=== PATIENT | female | born 1935 | race Caucasian/White ===

== ENCOUNTER 2020-08-13 14:15 | Inpatient (IN) | payer OTHER ==
[~2020-08-13] VITALS: Ht 162.6 cm; Wt 52.8 kg
[2020-08-13 14:20] VITALS: BP 120/60
[2020-08-13] MEDS ORDERED: LEXAPRO 10 MG T10 M1 PO (14:32)
[2020-08-13] MEDS ORDERED: MIRTAZAPINE7.5 MG PO (14:32)
[2020-08-13] MEDS ORDERED: SEROQUEL 25 MG25 MG PO (14:33)
[2020-08-13] MEDS ORDERED: LORADAMED10 MG PO (14:33)
--- NOTE | 2020-08-13 14:46 | NUR ---
Patient stood up and transferred to chair with unsteady gait. Camial notified of this and reports it is ok to wait to collect urine until she is seen in the back.
[2020-08-13 14:57] LABS: ABSOLUTE NEUTROPHILS 3.5 thou/uL (1.4-8.2); BASOPHILS 0.9 % (0.0-2.0); EOSINOPHILS 1.2 % (0.0-3.0); HEMATOCRIT 33.1 % (37.0-47.0); HEMOGLOBIN 11.2 gm/dL (12.0-15.0); LYMPHOCYTES 27.3 % (24.0-44.0); MCH 30.9 pg (26.0-34.0); MCHC 33.8 g/dL (28.0-37.0); MCV 91.3 fL (80.0-100.0); MONOCYTES 6.1 % (1.0-8.0); PLATELET COUNT 207 thou/uL (150-400); POLYS 64.5 % (36.0-66.0); RBC 3.62 mil/uL (4.20-5.00); RDW 13.9 % (10.5-14.5); WBC 5.4 thou/uL (4.0-11.0)
[2020-08-13 15:16] LABS: CALCIUM 8.9 mg/dL (8.5-10.1); POTASSIUM 3.9 mmol/L (3.5-5.1)
[2020-08-13 15:21] LABS: TOTAL BILIRUBIN 0.5 mg/dL (0.2-1.0); TOTAL PROTEIN 7.3 g/dL (6.4-8.2)
[2020-08-13 16:17] LABS: URINE BILIRUBIN NEGATIVE (Negative); URINE BLOOD TRACE (Negative); URINE CLARITY CLEAR; URINE COLOR YELLOW; URINE GLUCOSE-RANDOM* NEGATIVE (Negative); URINE KETONES NEGATIVE (Negative); URINE LEUKOCYTES-REFLEX TRACE (Negative); URINE NITRITE-REFLEX NEGATIVE (Negative); URINE PROTEIN (DIPSTICK) NEGATIVE (Negative); URINE UROBILINOGEN 0.2 E.U./dl (0.2-1.0)
[2020-08-13 17:21] VITALS: BP 120/60
--- NOTE | 2020-08-13 17:29 | NUR ---
PLEASE CALL ROC PEREZ (DAUGHTER) AT [phone] WITH ANY UPDATES OR WHEN SHE IS MOVED TO AN IN-PATIENT ROOM.
[2020-08-13 21:42] VITALS: BP 123/61
--- NOTE | 2020-08-13 21:45 | NUR ---
TRIED TO CALL REPORT. PT UNAVAILABLE.
[2020-08-13 23:39] VITALS: BP 153/76
--- NOTE | 2020-08-14 00:46 | NUR ---
PATIENT ADMITTED TO [facility] ED WITH SI, DEMENTIA WITH BEHAVIORS. SHE CAME BY STRETCHER. ASSISTED PATIENT TO BATHROOM. PATIENT APPEARS TO BE CONTINENT. PT'S GOWN CHANGED TO APPROPRIATE [facility] GOWN. PATIENT IS SPEAKS WITH WORD SALAD. PATIENT A/0X1. WHEN ASKED WHY SHE WAS AT HOSPITAL SHE STATES SHE DOESN'T KNOW. WHEN ASKED IF SHE WANTED TO HURT HERSELF OR WISH SHE WAS SHE SAID NO THAT SHE'D NEVER THINK THAT. PATIENT IS VERY UNSTEADY ON FEET. SHE DENIES USING A WALKER AT HOME. SHE DENIES PAIN. NO COMBATIVENESS SEEN OR HI. PATIENT'S SKIN IS INTACT WITH SOME BRUISING ON RIGHT HAND, POSIBLY FROM IV. ABDOMEN SOFT AND NONTENDER. POSITIVE BOWEL SOUNDS IN ALL 4 QUADS. NO EDEMA NOTED. HEART RATE REGULAR WITH S1S2 SOUNDS. LUNGS CTA BILATERALLY. PATIENT OFFERED WATER BEFORE GOING TO SLEEP AND SHE DID DRINK SOME. PATIENT LIVES AT HOME WITH HER . CALLED AND LEFT MESSAGE FOR TO CALL [facility] FOR CONSENT APPROVAL. PATIENT HAS MEDICARE A AND B AND [employer]IG[employer] INSURANCE. HER IS HER DPOA: LORI SHIPMAN [phone]. PATIENT ASSISTED TO BED AND SIDERAILS UP X 3. BED IN LOW POSITON AND BED ALARM IS ON. ROUTINE ROUNDING TO ASSESS SAFETY AND STATUS OF PATIENT.
--- NOTE | 2020-08-14 02:02 | NUR ---
PATIENT WAS UP IN DINING ROOM SINCE WOULD NOT STAY IN BED LONGER THAN 30 MINUTES. PATIENT IN RECLINER. SHE IS RESTLESS, AND IMPULSIVE TRYING TO GET OUT OF CHAIR AND NOT WANTING TO SLEEP. PATIENT ASSISTED TO BATHROOM. PATIENT IS AN ASSIST X 1. SHE IS UNSTEADY ON HER FEET. SHE IS CONFUSED AND GETS AGITATED EASILY. ORDER RECEIVED FROM DUY GARCIA FOR TRAZADONE 50MG PO ONE TIME, AND HALDOL 2.5MG PO OR IM Q 4 HOURS AGITATION. MEDS JUST ORDERED AND WILL GET READY TO GIVE NOW. PATIENT DOES NOT HAVE DENTURES, GLASSES AND HAS A HEARING AID IN RIGHT EAR.
[2020-08-14 09:06] VITALS: BP 128/61
[2020-08-14 12:14] LABS: FOLIC ACID 9.6 ng/mL (8.6-58.9); TSH 1.887 uIU/mL (0.358-3.740)
--- NOTE | 2020-08-14 15:28 | EKG ---
[facility] [place] [address] ELECTROCARDIOGRAM REPORT Name: RONI SHIPMAN Room #: [facility] ADM IN M.R.#: [id number] Admission: 08/13/20 Attend Phys: Marc Lantigua DO Discharge: Date of : 37 Report #: [id number] THIS REPORT FOR: cc: NABIL REA MD, SAMANTHA M. 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: YVONNE : 1935 Requested By: Marc Lantigua Order Number: [id number] MD: Asad Huddleston Measurements Intervals [place] Rate: 83 P: 69 CA: 161 QRS: -38 QRSD: 81 T: 6 QT: 391 QTc: 460 Interpretive Statements Sinus rhythm Left axis deviation Borderline T abnormalities, inferior leads No previous ECG available for comparison Electronically Signed On 08-14-2020 15:28:44 CDT by Asad Huddleston [email or web address] <ELECTRONICALLY SIGNED> By: Asad Huddleston MD, [facility] 08/14/20 1528 1524 1524 Asad Huddleston MD, [facility] /EPI
--- NOTE | 2020-08-14 15:33 | NUR ---
EWA was able to complete the assessment with the Pt's Caprice/ FINA Amaya, . Ewa was also able to speak with the Pt's daughter, Emily Rahman, . Lacey informed that the Pt has a placement at [facility]. Lacey informed it is a memory care facility. Lacey provided the contact information for [facility]. [facility] [phone]
--- NOTE | 2020-08-14 15:40 | NUR ---
ELENA contacted [facility] concerning placement for the Pt. [facility] confirmed they have accepted the Pt. [facility] requested a TB test be completed on the Pt and 2 covid test. One covid test needs to be 4 days prior to admissions and the other within 24 hrs of admission. Elena informed [facility] many not be able to provide a test 4 days prior because of discharge is unknown at this time. However, the Pt was provided with a COVID prior to admission and will be provided a test upon discharge. [facility] stated they would check with administration on the matter and get back with ELENA.
--- NOTE | 2020-08-14 17:44 | NUR ---
Assumed care of patient at 0700. Pleasantly confused. Oriented to person. Eating meals with some assistance. Remains on Fall precautions. Ambulatory with assist of two persons. Medication adherent. Breath sounds clear, no coughing. Bowel sounds present, no abdominal tenderness. Smiling. Relayed message from who brought eyeglasses for her and she smiled and laughed. Cooperative with care. Incontinent.
[2020-08-14 19:47] VITALS: BP 131/74
--- NOTE | 2020-08-15 02:22 | NUR ---
PATIENT ASSESSED AND IS ALERT X 1. SKIN WARM AND DRY. RESP EVEN AND UNLABORED. SITTING IN GARCIA CHAIR. DENIES ANY PAIN. TAKEN HS MED WELL. REMAINS A FALL RISK. REMAINS CALM AND COOPERATIVE ALL HS. PLACED TO BED. IS INCONT AND WERAS A BREIF. TAKEN TO BATHROOM. REORIENTATED TO PLACE AND TIME. NO SI/HI NOTED THIS SHIFT. SLEEPING WELL. ALARM ON. REMAINS SLEEPING/ONT PLAN OF CARE.
[2020-08-15 08:00] VITALS: BP 147/69
--- NOTE | 2020-08-15 12:51 | NUR ---
PATIENT AT THIS TIME EATING LUNCH CAN FEED SELF WITH SET-UP. PT IS W/O COMMBATIVE BEHAVIOR. NO PAIN OR RESP DISTRESS, NO INCREASED ANXIETY. HAD LARGE BM THIS MORNING IS CONT OF B&B.
--- NOTE | 2020-08-15 13:29 | NUR ---
PT IS IN DINING ROOM FOR GROUP THERAPY IS IN GARCIA CHAIR. PT W/O PAIN OR RESP DISTRESS. PT NO INCREASED ANXIETY.
--- NOTE | 2020-08-15 13:57 | NUR ---
PT HAS INCREASED ANXIETY GIVEN NEW ORDER PRN MED IM GIVEN IN RIGHT DELTOID. PT IS IN DINING ROOM IN GARCIA CHAIR.
[2020-08-15 19:49] VITALS: BP 94/59
--- NOTE | 2020-08-16 00:52 | NUR ---
Care assumed of patient at 1915: Patient seated in vibha chair in dayroom at start of shift. Patient calm and cooperative. Flat affect. Pleasantly confused. Alert and oriented to name only. Denies pain and discomfort. Denies SI/HI/AH/VH. No restless or wandering behaviors observed. No aggression observed. Denies anxiety and depression. Took HS medication whole in applesauce. Ate 100% HS snack. Patient able to request for assist when needing to use the bathroom. Provided mod assist x2 due to unsteady gait and recent fall prior to admission. Patient assisted to bed without difficulty. Patient was able to fall asleep and has been resting quietly since.
[2020-08-16 07:53] VITALS: BP 102/52; BP 102/58
[2020-08-16 08:40] VITALS: BP 102/58
--- NOTE | 2020-08-16 09:00 | NUR ---
PT SITTING IN DINING ROOM IN GARCIA CHAIR. PT NEEDED ASSISTANCE WITH FEEDING. PT TOOK MEDS THIS AM WHOLE WITH WATER. PT DOES GRAB ONTO STAFF AT TIMES, LIKE A STARTLE RESPONSE. PT DOES HAVE LONG NAILS AND CAN SCRATCH. PT NOT ABLE TO TALK IN FULL SENTANCES. PT UNDERSTANDS WHAT STAFF SAY, JUST HAS PROBLEMS GETTING OUT WHAT SHE WANTS TO SAY.
--- NOTE | 2020-08-16 12:10 | NUR ---
ASSISTED PT TO BATHROOM. PT USED BSC WITH ASSIST X1. PT UNSTEADY AND SHAKEY TO LOWER EXT. PT THANKED THE NURSE FOR HELPING HER. PT STATED SHE WAS A BAUMAN GIRL. ASKED PT WHAT ANIMALS THEY HAD COW OR CHICKENS, PT STATED SHE HAD ALL.
--- NOTE | 2020-08-16 15:57 | NUR ---
PT SITTING IN SHAWN CHAIR. PT TALKING IN MORE SENCE NOW. PT STATED SHE HAS A BRAIN INJURY. PT PULLING CHAIR ALARM OUT FROM UNDER HER. PT WANTING TO GET UP. PT TAKEN TO BATHROOM. PT ALLOWED THIS CLOTH BOOKER TO PERFORM COVID TEST WITH ASSISTANCE OF ANOTHER STAFF.
--- NOTE | 2020-08-16 16:08 | NUR ---
@[id number] contact [facility] concerning Pt pending d/c. EWA spoke with the DON who stated she knew nothing about the Pt. EWA informed that Kayla confirmed placement on 08/14/2020. Marilyn stated, " So she is fixed in 2 days!" EWA educated that [facility] does not "fix" people however if a Pt not longer displays acute psy symptoms and there is a safe d/c plan SW will move forward with the D/C. The DON stated she would go talk to the administration and give SW a call back. SW contact the Pt's DPOA concerning the matter. DPOA stated she would call to [facility]. @[id number] EWA recieved a call from Kelley Brooks, . Kelley reconfirmed that Pt has been accepted, however they were in need of the 2 COVID test, a physician's statement, and TB test. Kelley also stated she would fax the physician's statement form over. EWA informed all request will be completed prior to discharge. Pt scheduled for d/c 08/20/2020
--- NOTE | 2020-08-16 16:48 | NUR ---
1430 Pt completed a video assessment with Reyes URIBE via [email or web address]
--- NOTE | 2020-08-16 18:29 | NUR ---
PT IS PLEASANT TODAY. PT SEEMS TO BE ABLE TO ANSWER QUESTIONS. PT IS SPONTANEOUS WITH GETTING UP WITHOUT ASKING FOR HELP. PT ABLE TO VOICE IF SHE NEEDS TO USE BATHROOM.
[2020-08-16 19:38] VITALS: BP 136/67
--- NOTE | 2020-08-17 02:38 | NUR ---
ASSUMED PT CARE AMITA 193. ALERT AND AWAKE IN RECLINER. ABLE TO TELL ME HER NAME AND BIRTHDAY ONLY. ABLE TO VERBALIZE THAT SHE'S THIRSTY. NO S/S ACUTE DISTRESS NOTED OR REPORTED AT THIS TIME. WILL CONT TO MONITOR FOR ANY CHANGES IN CONDITION.
[2020-08-17 07:44] VITALS: BP 121/74
[2020-08-17 08:10] VITALS: BP 121/74
--- NOTE | 2020-08-17 08:18 | NUR ---
PT SITTING IN DINING ROOM. PT WORRIED ABOUT ANOTHER RESIDENT BEHIND HER. PT CALLING OUT AND REACHING OUT FOR SOMEONE TO HELP HER. PT TOOK MEDS IN OATMEAL. PT LUNGS CLEAR. PT GETS AGITATED WHEN SHE NEEDS TO USE BATHROOM.
--- NOTE | 2020-08-17 09:17 | NUR ---
PT SITTING QUIETLY IN GROUP. PT TAKEN TO BATHROOM AFTER BREAKFAST AND IS CALMER.
--- NOTE | 2020-08-17 11:40 | NUR ---
PT HAS BEEN USING BSC WHEN SHOWING BEHAVIOR. PT ABLE TO SIT ON BSC AND VOID AND BRIEF WAS DRY.
--- NOTE | 2020-08-17 12:32 | NUR ---
PT WAS ABLE TO FEED SELF WITH ASSIST OF CUTTING UP HER FOOD.
--- NOTE | 2020-08-17 15:52 | NUR ---
PT IS FIGIDTY IN HER CHAIR. PT MESSING WITH ALARM BOX FOR CHAIR ALARM, AND PLAYING WITH BLANKET. PT WANTING TO GET UP AND GO. PT EASILY DISTRACTED WITH MAG OR A PAPER.
[2020-08-17 19:38] VITALS: BP 132/70
[2020-08-17 22:15] VITALS: BP 132/70
--- NOTE | 2020-08-18 03:18 | NUR ---
Assumed care of patient this pm shift. Patient sitting in mileu with peers. Patient appears to be in good spirits. Patients affect is blunted. Patient denies hi/si. Patient denies pain. Patient takes medications whole in pudding or applesauce. Patients assessment shows no signs of acute distress. Patient is alert and oriented to self. Patient is considered a falls risk and has on yellow shirt. Patient does not appear to have hi/si. We will continue to monitor per hospital policy.
[2020-08-18 07:49] VITALS: BP 118/67
--- NOTE | 2020-08-18 09:13 | NUR ---
0700 ASSUMED CARE OF PATIENT SITTING IN DAYROOM AT THAT TIME. PATIENT SITTING IN WC QUIETLY. PATIENT UNABLE TO ANSWER QUESTIONS. 0800 PATIENT EATING BREAKFAST WITHOUT DIFFICULTY. MEDICATIONS TAKEN WHOLE IN APPLESAUCE WITHOUT DIFFICULTY. PATIENT PRESENT IN GROUP AT THIS TIME.
--- NOTE | 2020-08-18 12:56 | NUR ---
Faxed updates [facility].
[2020-08-18 19:24] VITALS: BP 118/77
[2020-08-18 22:10] VITALS: BP 118/77
--- NOTE | 2020-08-19 04:06 | NUR ---
Assumed care of patient this pm shift. Patient in good spirits, pleasantly confused. Patient is alert and oriented to self. Patient takes medications crushed in pudding. Patients affect is variable. Patients assessment shows no signs of acute distress. Patient does not appear to want to harm self or others. Patient is considered a falls risk and has on a yellow shirt. Vital signs are stable. Patient states no concerns at this time. We will continue to monitor per hospital policy.
[2020-08-19 07:46] VITALS: BP 116/61
[2020-08-19 19:31] VITALS: BP 112/60
--- NOTE | 2020-08-19 23:29 | NUR ---
Care assumed of patient at 1915: Patient seated in w/c in dayroom at start of shift. Patient alert and oriented to person only. Patient confused and forgetful. Speech clear but disorganized. Patient fidgeting with activity pad and blanket. Patient was able to deny pain and discomfort. No s/s of pain or discomfort observed. Patient denies SI/HI/AH/VH. Patient ate 100% HS snack. Patient spit out medication Seroquel crushed in pudding. Nurse was able to get patient to take other medication crushed in pudding. Patient asked to use the bathroom. Assisted to the bathroom with mod assist x2, unsteady gait, poor balance. Patient continent of bladder. Patient assisted to vibha chair in dayroom due to restless behaviors. No aggression observed. Patient appears tired and is sleeping off and on at this time.
[2020-08-20 09:19] VITALS: BP 106/46
--- NOTE | 2020-08-20 11:41 | NUR ---
0700 ASSUMED CARE OF PATIENT, PATIENT IN DAYROOM AT THAT TIME SITTING IN WC. PATIENT IS RESTLESS, ATTEMPTING TO GET OUT OF WC. LAP JAUN IN PLACE, FASTENED IN FRONT. PATIENT ATE 100% OF BREAKFAST. 0820 MEDICATIONS TAKEN CRUSHED IN PUDDING WITHOUT DIFFICULTY. NO C/O PAIN, DENIES SI/HI. PATIENT DIFFICULT TO UNDERSTAND AT TIMES WHEN SPEAKING FAST. GEAR STRAIGHTENER ASKS PATIENT TO SLOW DOWN AND PATIENT SPEAKS CLEARER AT TIMES. PATIENT STATING "I WANT TO LEAVE AND GO HOME" 1020 PATIENT TAKEN TO X 1 ASSIST WITH TRANSFERING TO TOILET. 1030 PATIENT EXPLAINED ABOUT COVID TEST, COVID TEST OBTAINED. PATIENT TOLERATED WELL.
--- NOTE | 2020-08-20 16:41 | NUR ---
AFTER CHECKING FOR RESULTS OF COVID TEST OBTAINED THIS AM AT 1030, I NOTICED THERE WAS NO ORDER AND NO CALL FROM LAB. I THE HEAT TREATER HEAD CALLED LAB AND THEY STATES THEY WERE UNABLE TO FIND THE SAMPLE. LAB DID SAY THEY SAW THE ENTRY IN THE LAB BOOK BUT DID NOT HAVE THE SAMPLE. AT 1638 COVID TEST WAS RETAKEN AND TAKEN TO LAB.
--- NOTE | 2020-08-20 18:38 | NUR ---
PATIENT SITTING AT TABLE TRYING TO GET OUT OF WC. LAP BUDDING IN PLACE AND FASTENED INFRONT. PATIENT RESTLESS. PHARMACEUTICAL WORKER ATTEMPTS TO TALK TO PATIENT AND PREVENT PATIENT FROM GETTING UP. PATIENT TRANSFERED TO [facility] X [address]
--- NOTE | 2020-08-21 00:34 | NUR ---
Care assumed of patient at 1915: Patient seated in vibha chair in dayroom at start of shift. Patient restless but cooperative. Fidgeting in her chair, moving around papers, linens, cups. Attempting to get up unattended but was able to be re-directed with voice prompts only. Alert and oriented to first name only. Pleasantly confused and forgetful. Patient having clear speech, disorganized at times. Patient denies depression and anxiety. When asked if she was having thoughts about hurting/killing herself, her eyes got wide and she stated "oh no, I would never!". Denies pain and discomfort. Ate 100% HS snack. Took HS medication crushed without difficulty. No aggression or agitation observed. Patient did report that she was tired. Assisted to the bathroom with mod assist x2 due to unsteady gait, poor balance. Continent of bladder. Then assisted to bed. Patient was able to fall asleep without difficulty and is resting quietly at this time.
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
== END 2020-08-21 07:01 | disposition home or self-care (01) | DRG 56 ==
LOC: ER 14:15 → SBH 17:03 → EROBS 17:03 → SBH 22:01
PROVIDERS: Physician Assistant; ADMIT Psychiatry & Neurology Psychiatry; ATTEND Psychiatry & Neurology Psychiatry
DX: G30.9 Alzheimer's disease, unspecified (principal); U07.1 COVID-19; F01.51 Vascular dementia, unspecified severity, with behavioral disturbance; R45.851 Suicidal ideations; F02.81 Dementia in other diseases classified elsewhere, unspecified severity, with behavioral disturbance; R45.850 Homicidal ideations; Z90.49 Acquired absence of other specified parts of digestive tract; Z90.710 Acquired absence of both cervix and uterus; Z79.899 Other long term (current) drug therapy; Z88.8 Allergy status to other drugs, medicaments and biological substances
CPT/HCPCS: 10880

== ENCOUNTER 2020-08-21 05:59 | Inpatient (IN) | payer OTHER ==
[~2020-08-21] VITALS: Ht 162.6 cm; Wt 44.6 kg
[~2020-08-21 05:59] MED LIST: LEXAPRO 10 MG T10 M1 PO; LORADAMED10 MG PO; MIRTAZAPINE7.5 MG PO; SEROQUEL 25 MG25 MG PO
[2020-08-21 07:30] VITALS: BP 128/68
[2020-08-21 10:36] LABS: % SATURATION 27 % (20-39); IRON 67 ug/dL (50-170); TIBC 247 ug/dL (250-450)
[2020-08-21 12:27] VITALS: BP 116/60
--- NOTE | 2020-08-21 15:45 | NUR ---
Case opened to follow for dc planning. Pt admitted from [facility] due to positive covid test and elev d dimer. Pt has repeat covid this am and it is negative. She has also had 3 other negative tests since her adission to [facility]. DC plan per [facility] MERCHANDISING MANAGER and family is [facility] memory care placement at [facility] [phone] (Kelley Brooks). All arrangements are in place;however they had required two negative covid tests prior to dc. Will need to clarify if they will accept todays negative as their second negative or if they need them consecutively. Discussed with the attending and positive result felt to be in error based on the labs covid threshold report. Pt getting ultra sound r/o dvt. Possible dc ready tomorrow. Dtr Lacey updated and in agreement with the dc plan if [facility] can accept. She notes that the [facility] is requiring family to provide private duty for the 14 day quarentine to ensure pt does not leave her room there. She will need to be notified early tomorrow am if dc is anticipated so she can secure the private duty. (the [facility] will not allow family to provide this service). Message left for Kelley Brooks at [facility].
[2020-08-21 16:30] VITALS: BP 126/64
--- NOTE | 2020-08-21 18:36 | NUR ---
PT ADMITTED TO ROOM 352 FROM [facility], PT ALERT AND ORIENTED X2, CONFUSE, FORGETFUL AND IMPULSIVE. TELEMETRY PLACED ON PT, VITALS SIGNS AND ASSESSMENT COMPLETED. PT DAUGHTER CALLED TO HELP WITH ADMISSION PAPER WORK. PT ORIENTED TO ROOM, BEDSIDE COMMODE CLOSE TO BY. FALL PRECAUTIONS IN PLACE. CALL LIGHT AND TABLE WITHIN REACH. BED AT LOWEST LEVEL WITH AALRM ON.
[2020-08-21 19:45] VITALS: BP 125/71
--- NOTE | 2020-08-22 03:46 | NUR ---
MIGEL FROM LAB CALLED WITH POSITIVE COVID RESULT. NOTIFIED ALL PARTIES, LINING MAKER HAND, HS AND PRIMARY NURSE.
[2020-08-22 05:29] VITALS: BP 126/77
[2020-08-22 06:03] LABS: HEMATOCRIT 30.5 % (37.0-47.0); HEMOGLOBIN 10.4 gm/dL (12.0-15.0); MCHC 34.1 g/dL (28.0-37.0); MCV 90.9 fL (80.0-100.0); RBC 3.36 mil/uL (4.20-5.00); RDW 13.7 % (10.5-14.5); WBC 5.5 thou/uL (4.0-11.0)
[2020-08-22 06:25] LABS: CREATININE 0.9 mg/dL (0.6-1.0); MAGNESIUM 2.1 mg/dL (1.8-2.4); POTASSIUM 3.7 mmol/L (3.5-5.1)
[2020-08-22 07:16] VITALS: BP 130/54
--- NOTE | 2020-08-22 10:04 | NUR ---
ASSUMED PATIENT CARE THIS AM AT APPROXIMATELY 0700. PATIENT IS AWAKE AND CONFUSED, ORIENTED TO SELF. PATIENT VERY IMPULSIVE AND GETS OUT OF BED QUICKLY, REORIENTED PATIENT PRN, ENCOURAGE TO CALL FOR ASSISTANCE. PATIENT GIVEN MEDS ORDERED AND TOLERATED WELL. O2 SAT STABLE ON ROOM AIR THIS AM. NO COMPLAINTS OF COUGH OR SOB. PAGED DR. BARROW THIS AM FOR PRN ORDERS FOR AGITATION. AWAITING CALL BACK
[2020-08-22 15:25] VITALS: BP 130/71
--- NOTE | 2020-08-22 15:57 | NUR ---
EWA reviewed chart and spoke with nursing and attending physician. Pt remains in Enhanced Isolation due to COVID-19. Pt is afebrile and not on O2. Pt had repeat positive test yesterday afternoon. EWA spoke with Kelley, from [facility], who states that they will review pt's clinical info and will pass on to their regional staff for review. Pt must have two negative tests and be symptom free 24 hours prior to admission to [facility]. EWA faxed clinical info/COVID test results/vital signs/nurses notes to [facility] for review. EWA spoke with pt's dtr, Lacey, via phone to provide update. Lacey was not aware of pt's repeat positive test from yesterday. Lacey is agreeable with plan and is in the process of hiring the private duty staff to sit with pt for the initial 14 days when she has to quarantine upon admission at [facility]. EWA is following to assist as needed with discharge planning.
[2020-08-22 19:12] VITALS: BP 144/79
[2020-08-23 04:58] VITALS: BP 115/62
[2020-08-23 06:31] LABS: HEMATOCRIT 30.3 % (37.0-47.0); HEMOGLOBIN 10.3 gm/dL (12.0-15.0); MCH 30.9 pg (26.0-34.0); MCHC 33.9 g/dL (28.0-37.0); MCV 91.1 fL (80.0-100.0); RBC 3.33 mil/uL (4.20-5.00); RDW 13.8 % (10.5-14.5); WBC 3.2 thou/uL (4.0-11.0)
[2020-08-23 06:53] LABS: CALCIUM 8.7 mg/dL (8.5-10.1); CREATININE 0.9 mg/dL (0.6-1.0); MAGNESIUM 2.1 mg/dL (1.8-2.4); POTASSIUM 3.6 mmol/L (3.5-5.1)
--- NOTE | 2020-08-23 07:31 | NUR ---
PT MAKING NO PROGRESS TOWARDS GOALS. PT UNABLE TO RETAIN REALITY ORIENTATION. ONLY ABLE TO RETAIN HER FIRST AND LAST NAMES. PT UNABLE TO RETAIN INSTRUCTIONS TO CALL FOR ASSISTANCE WITH OOB NEEDS. BED ALARM IN USE.
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
[2020-08-23 08:50] VITALS: BP 115/62
--- NOTE | 2020-08-23 15:04 | NUR ---
EWA reviewed chart and spoke with nursing and attending physician. Pt remains in Enhanced Isolation due to COVID-19. Pt is afebrile and not requiring O2. EWA spoke with pt's dtr, Lacey, via phone to provide update and discuss discharge plan. Pt was agitated and combative with staff earlier today. Psych is following for med adjustments. Lacey is concerned that if pt's behaviors are not under control, [facility], may not be able to accept her. No weekend discharge planned. Pt will need two negative COVID tests to either return to admit to [facility]. EWA is following to assist as needed with discharge planning.
[2020-08-23] MEDS ORDERED: SEROQUEL 25 MG25 MG PO (15:24)
[2020-08-23 16:32] VITALS: BP 151/76
[2020-08-23 19:24] VITALS: BP 140/92
--- NOTE | 2020-08-23 22:25 | NUR ---
PT REMAINS CONFUSED IRRITABLE AND RESTLESS. AFFECT VILLAFANA. PT COMPLIANT WITH MEDS AND ADL CARES. PT CONTINUES TO IMPULSIVLEY GET OOB, UNSTEADY GAIT. BED ALARM ON.
[2020-08-24 03:26] VITALS: BP 132/67
[2020-08-24 05:37] LABS: HEMATOCRIT 30.8 % (37.0-47.0); HEMOGLOBIN 10.3 gm/dL (12.0-15.0); MCH 30.5 pg (26.0-34.0); MCHC 33.4 g/dL (28.0-37.0); MCV 91.2 fL (80.0-100.0); PLATELET COUNT 159 thou/uL (150-400); RBC 3.38 mil/uL (4.20-5.00); RDW 13.4 % (10.5-14.5)
[2020-08-24 05:58] LABS: CALCIUM 8.6 mg/dL (8.5-10.1); CREATININE 0.9 mg/dL (0.6-1.0); PHOSPHORUS 3.3 mg/dL (2.5-4.9); POTASSIUM 3.6 mmol/L (3.5-5.1)
[2020-08-24 07:24] VITALS: BP 128/75
[2020-08-24 12:32] LABS: ABSOLUTE NEUTROPHILS 1.7 thou/uL (1.4-8.2); ANISOCYTOSIS SLIGHT
[2020-08-24 15:41] VITALS: BP 136/79
[2020-08-24 20:10] VITALS: BP 127/75
--- NOTE | 2020-08-25 03:20 | NUR ---
Patient making slow progress towards outcome goals. Oxygenation optimal on room air. Patient very impusive, multiple attempts to get out of bed without calling for assistance. Haldol given x 2 with some relief.
[2020-08-25 04:30] VITALS: BP 127/80
[2020-08-25 06:31] LABS: HEMATOCRIT 31.7 % (37.0-47.0); HEMOGLOBIN 10.6 gm/dL (12.0-15.0); MCH 30.4 pg (26.0-34.0); MCHC 33.5 g/dL (28.0-37.0); MCV 90.7 fL (80.0-100.0); RBC 3.49 mil/uL (4.20-5.00); RDW 13.4 % (10.5-14.5); WBC 2.5 thou/uL (4.0-11.0)
[2020-08-25 06:43] LABS: CALCIUM 8.7 mg/dL (8.5-10.1); CREATININE 0.8 mg/dL (0.6-1.0); MAGNESIUM 2.2 mg/dL (1.8-2.4); POTASSIUM 3.6 mmol/L (3.5-5.1)
[2020-08-25 08:58] VITALS: BP 113/60
[2020-08-25 17:30] VITALS: BP 115/61
--- NOTE | 2020-08-25 18:36 | NUR ---
ASSUMJED CARE OF PT AT 0700. PT ALERT TO SELF, CONFUSED, REDIRECTABLE. IMPULSIVE WHEN NEEDING TO VOID. ASYMPTOMATIC AT THIS TIME. SPOKE WITH FAMILY REGARDING POC AND DISCHARGE PLANNING. VITAQLS STABLE. WCM.
[2020-08-25 19:32] VITALS: BP 118/71
--- NOTE | 2020-08-26 03:34 | NUR ---
Sloe progress towards outcome goals. COVID positive and asymptomatic. Confused, attepts to get out of bed frequeantly without calling for assistance. High fall risks, fall precautions in place. Haldol given with some control of behavior.
[2020-08-26 03:54] VITALS: BP 122/75
[2020-08-26 06:18] VITALS: BP 128/75
[2020-08-26 07:50] VITALS: BP 128/74
--- NOTE | 2020-08-26 15:40 | NUR ---
EWA reviewed chart and spoke with nursing and attending physician. Pt remains in Enhanced Isolation due to COVID-19. Pt is afebrile and not requiring O2. ID consulted. EWA received call from Kelley at [facility]. [facility] requires two Negatvie COVID tests prior to move-in date. 1 Neg test 4-5 days prior and then 1 Neg. within 24 hrs of discharge. Repeat COVID test to be ordered today. EWA faxed updated clinical info to [facility] for review. EWA spoke with pt's dtrLacey, via phone to provide update and discuss discharge plan. Attending physician over the weekend stated to pt's dtr that pt would need to go to another facility prior to going to [facility], like a SNF. Pt's family want pt to move once and not to multiple facilities. EWA is following to assist as needed with discharge planning.
--- NOTE | 2020-08-26 19:01 | NUR ---
ASSUMED PATIENT CARE AT 0700. ALERT . RESTLESS TRY TO GET OUT OF BED. BED ALARM ON. SLOELY TOWARDS POC GOALS.
[2020-08-26 19:44] VITALS: BP 123/70
[2020-08-27 03:48] VITALS: BP 138/78
--- NOTE | 2020-08-27 05:18 | NUR ---
ASSUMED CARE OF PT FROM DAY SHIFT PT UP TO BSC VOIDED , PT ABLE TO TAKE PO MEDICATION WITH PUDDING, PT DO NOT USE CALL LIGHT , CONFUSED, PT ABULATED TO BATHROOM , THEN CALLED 10 MINS LATER REQUESTING TO GO TO BATHROOM, PT THEN STATES SHE COULD NOT WALK , PT UP TO BSC , NO URINE NOTED ASSISTED BACK TO BED. PT YELLING OUT AT TIMES. BED ALARM IN PLACE FREQ CHECK FOR SAFETY.
[2020-08-27 07:20] VITALS: BP 120/73
--- NOTE | 2020-08-27 16:05 | NUR ---
EWA reviewed chart and spoke with nursing and attending physician. Pt remains in Enhanced Isolation due to COVID-19. Pt's repeat test yesterday is positive. ID consulted. PT is afebrile and not requiring O2. EWA faxed clinical info to [facility] for review. EWA spoke with Kelley at [facility]. Pt will a two negative COVID tests prior to admission. When pt has a negative test, then they will request another test to be done 4 days after first negative test. Or pt would be able to admit to their facility on 09.09, which would be 20 days after her first COVID positive test. EWA spoke with pt's dtr, Lacey, via phone to provide update. Notified pt's dtr of repeat positive test. EWA discussed option for possible SNF placement until pt has two negative tests or can move into [facility]. Pt's dtr is agreeable with SNF referral. EWA discussed options for SNFs in the [facility] that accept COVID positive pts. Pt's dtr requests referral to be sent to [facility] in [place]. EWA faxed SNF referral/COVID test results to the facility for review. Spoke with [facility], who confirmed they are accepting COVID positive pts and they do have a locked unit. [place] still [place] for Level 2 assessments, which can be completed by the nursing facility. Awaiting input from [facility] at this time. EWA is following to assist as needed with discharge planning.
--- NOTE | 2020-08-27 17:41 | NUR ---
PT STILL IMPULSIVE AND TRYING TO GET OUT OF BED. PT UP TO BEDSIDE KAMODE SEVERAL TIMES TO VOID. PT WORKING WITH PT/OT AND REMAIN ON ROOM AIR, TAKING IN GOOD PO. WILL CONTINUE TO ASSESS.
[2020-08-27 19:41] VITALS: BP 130/77
== END 2020-08-28 01:09 | DRG 178 ==
LOC: 3W 05:59
PROVIDERS: Internal Medicine; ADMIT Hospitalist; ATTEND Hospitalist
DX: U07.1 COVID-19 (principal); E46 Unspecified protein-calorie malnutrition; D68.9 Coagulation defect, unspecified; F03.91 Unspecified dementia, unspecified severity, with behavioral disturbance; Z68.1 Body mass index [BMI] 19.9 or less, adult; D68.69 Other thrombophilia; Z66 Do not resuscitate; E86.0 Dehydration; D64.9 Anemia, unspecified; Z88.8 Allergy status to other drugs, medicaments and biological substances; Z86.12 Personal history of poliomyelitis; Z90.710 Acquired absence of both cervix and uterus; Z90.49 Acquired absence of other specified parts of digestive tract
CPT/HCPCS: 10080

== ENCOUNTER 2020-08-27 20:30 | Inpatient (IN) | payer OTHER ==
[~2020-08-27] VITALS: Ht 162.6 cm; Wt 52.3 kg
[2020-08-28 02:00] VITALS: BP 134/69
--- NOTE | 2020-08-28 03:55 | NUR ---
RECIEVED PT FROM [facility] UPON ARRIVAL TO UNIT PT ALERT TO SELF ONLY SPEECH CLEAR PT SOFT SPOKEN , CONFUSION NOTED , PT PLACED IN BED WITH ALARM ON . DAUGHTER NOTIFED OF TRANSFER.ASSESSMENT COMPLETED.
[2020-08-28 15:41] VITALS: BP 133/64
--- NOTE | 2020-08-28 15:43 | NUR ---
EWA spoke with Kavitha Ackerman at [facility]. They denied the Pt not being able to meet the Pt needs due to not having locked memory care unit.
--- NOTE | 2020-08-28 17:13 | NUR ---
1600 RESUMMED CARE FROM OVERNIGHT SHIFT THIS AM, PATIENT IN DAYROOM QUIET. PATIENT ATE BREAKFAST TOOK MEDICATION WITHOUT INCIDENCE, PATIENT CALM COOPERATIVE. PATIENTS ABDOMEN SOFT ROUND BOWEL SOUNDS PRESENT, LUNGS CLEAR PATIENT UNABLE TO TELL YOU ABOUT SI/HI/AH/VH AT PRESENT DUE TO COGNITIVE DISTURBANCE. PATIENT IN ROOM ISOLATING FOR DC PURPOSES PATIENT SPOKE WITH DAUGHTER TODAY. WILL CONTINUE TO MONITOR PATIENT FOR SAFETY AND BEHAVIORS.
[2020-08-28 19:30] VITALS: BP 121/74
[2020-08-28 23:29] VITALS: BP 133/64
--- NOTE | 2020-08-29 02:38 | NUR ---
Assumed care of patient this pm shift. Patient in her room during assessment. Patient calm and cooperative. Patient alert and oriented to self only. Patient med adherent. Patient ambulates via wheel chair. Vital signs stable. No acute distress noted at this time. No questions or concerns from patient. Affect blunted. We will continue to monitor via hospital protocol.
[2020-08-29 07:00] VITALS: BP 126/71; BP 128/63
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
--- NOTE | 2020-08-29 09:42 | NUR ---
EWA received updates from the SW team. Pt is due to go to [facility] on 09/09 as long as she has been quarantined from everyone else for 20 days. Her 20 days will be up on 09/09. SW team will continue to follow pt during his stay on this unit.
--- NOTE | 2020-08-29 16:03 | NUR ---
0700 ASSUMED CARE OF PATIENT, PATIENT SITTING IN CHAIR AT THAT TIME IN ROOM. 0800 PATIENT AWAKE AND ALERT, ORIENTED TO SELF. PATIENT ATE 50% OF BREAKFAST. MEDICATION TAKEN CRUSHED IN YOGURT WITHOUT DIFFICULTY. PATIENT ASSISTED TO BR VOIDED X1. LUNG SOUNDS CLEAR, BS ACTIVE. PATIENT REMAINS IN ISOLATION IN ROOM AT THIS TIME. PATIENT SLEEPING OFF AND ON. WILL CONTINUE TO MONITOR.
[2020-08-29 21:49] VITALS: BP 83/46
--- NOTE | 2020-08-30 01:03 | NUR ---
Assumed care on 08/29/20 @1930. Seated in a vibha chair in her room, looking out the door into the santana. Calm, cooperative, A&Ox1. Compliant with medication administration, taking meds crushed in applesauce. Retired to bed @ , is in bed at this writing, with eyes closed, respirations even and unlabored. Will monitor as per unit protocol.
[2020-08-30 01:29] VITALS: BP 83/46
[2020-08-30 08:45] VITALS: BP 167/77
--- NOTE | 2020-08-30 09:10 | NUR ---
Assumed care 0700. Remains in her room with door and the only patient on her side of the santana--for safety observation and agreement for her pending discharge soon. Oriented only to name. Does not know time, date, place, purpose, or where she was born or how old she is.
--- NOTE | 2020-08-30 18:19 | NUR ---
Has been sitting up in the recliner, helped up for toileting, assisted and encouraged with eating. Replied yes when asked if she had a nice conversation on the phone with her daughter. She tolerates her food well-ate about 60 % dinner with encouragement. When asked if she were having any trouble breathing replied, you have to keep going on. She has called out once for another named person not in the room and then was talking to someone not in the room. She has been isolated to her room all day. She has not displayed any acting out behaviors. Once when this staff was helping her to the toilet, she was shaking all over. She has not displayed any behaviors to suggest she is having thoughts/intensions of SI/HI. With the talking to noone present, pt. has probably been auditorily and visually hallucinating. She has been dozing off and on.
[2020-08-30 19:00] VITALS: BP 95/55
--- NOTE | 2020-08-30 20:44 | NUR ---
Care assumed of patient at 1915: Patient seated quietly in her room in [facility]. Patient alert and oriented to person only. Pleasantly confused and forgetful. No s/s of pain or discomfort. Patient smiling, waving. Took HS medication crushed without difficulty. Ate 50% HS snack with total assist. Patient has remained in her room this shift. Speech clear at times but disorganized. Patient was able to state "no more" when nurse was assisting with snack. No behaviors indicative of SI/HI/AH/VH. No delusional or paranoia behaviors observed. Patient assisted to bed with mod assist x2 due to unsteady gait and poor balance.
[2020-08-31 07:44] VITALS: BP 102/76
--- NOTE | 2020-08-31 10:25 | NUR ---
1021 RESUMMED CARE FROM OVERNIGHT THIS AM, PATIENT IN ROOM QUIET WAITING FOR BREAKFAST. PATIENT ATE 80% OF BREAKFAST TOOK MEDICATION CRUSHED IN OATMEAL WITHOUT INCIDENCE. PATIENT IS ORIENTED TO SELF ONLY PATIENT CALM COOPERATION COLORING IN ROOM. PATIENTS ABDOMEN SOFT ROUND BOWEL SOUNDS PRESENT LUNGS CLEAR. PATIENT CANNOT TELL YOU IF SHE HAS SI/HI/AH/VH DUE TO COGNITION DELAYS. WILL CONTINUE TO MONITOR FOR SAFETY AND BEEHAVIORS.
[2020-08-31 19:40] VITALS: BP 97/45
--- NOTE | 2020-09-01 02:24 | NUR ---
Assumed care of pt @1900. Pt calm et cooperative this shift. Took medication crushed in pudding without difficulty. VSWNL. Health assessment with no abnormalities noted at present time. Pt having non-responsive episode while on the bedside commode X2 this shift. Pt leans to L side, has small all over body spasms, then becomes unresponsive until she is moved back to the bed. She then responds to both verbal et touch stimulus. Unable to assess SI/HI/AVH due to cognitive deficit but pt does not demonstrate any signs or symptoms of emotional distress at present time. Currently resting in bd with eyes closed. Will continue to monitor per protocol.
--- NOTE | 2020-09-01 04:04 | NUR ---
Around 1999, patient agitated, gritted teeth, non-cooperative with safety instructions, yelling "Ashok". Provided drink, toileting, re-positioning. None of which were helpful. Appeared confused and disoriented, difficulty comprehending orientation, possibly causing agitation. Provided PRN Haldol PO to assist with agitation. Medication helpful with agitation.
[2020-09-01 06:24] VITALS: BP 130/79
--- NOTE | 2020-09-01 09:12 | NUR ---
0700 ASSUMED CARE OF PATIENT. PATIENT SITTING IN GERICHAIR IN ROOM. PATIENT AWAKE & ALERT, ORIENTED X1 TO SELF. PATIENT RESTLESS CALLING OUT AT TIMES. PATIENT LISTENING TO MUSIC IN ROOM, PATIENT RESTING IN CHAIR. 904 PATIENT UP TO BR, VOIDED APPROX. 250 ML YELLOW URINE. WILL CONTINUE TO OBSERVE
--- NOTE | 2020-09-01 11:30 | NUR ---
1020 PATIENT OBSERVED ON A ZOOM CALL WITH DAUGHTER. PATIENT COMMUNICATING WELL AND RESPONDING TO DAUGHTER. AFTER CALL PATIENT QUIETLY SLEEPING IN CHAIR.
--- NOTE | 2020-09-01 18:46 | NUR ---
PATIENT REQUEST TO GO TO THE BATHROOM. MARINE ENGINEERING TEACHER ASSIST PATIENT TO BSC. PATIENT UNABLE TO VOID. PATIENT WEAK ASSIST X2 TO TRANSFER BACK TO [facility]. PATIENT WATCHING MOVIE ON TABLET.
[2020-09-01 19:35] VITALS: BP 105/55
--- NOTE | 2020-09-01 21:06 | NUR ---
Care assumed of patient at 1915: Patient seated in vibha chair, in her room, watching a movie on the tablet at start of shift. Patient presents with flat affect. Primarily pleasant and coooperative. Patient alert and oriented to person only. Confused and forgetful. Does become frustrated when confused on one step directions. Patient asked for a drink of water, nurse provided cup of ice water, attempted to assist patient with straw for her to take a drink, patient pushed the cup away and stated "no, I want water!". After speaking with patient for several minutes, patient was able to comprehend that it was her water and she took a drink. Patient ate 50% HS snack. Took HS medication whole without difficulty. Patient was assisted to bed with mod assist x2. Unsteady gait, poor balance. Continent of bladder. Patient resting quietly in bed at this time.
[2020-09-02 07:00] VITALS: BP 121/61
--- NOTE | 2020-09-02 11:28 | NUR ---
EWA spoke with Kelley Barton, , at [facility]. Kelley reconfirmed they will accept the Pt on 09/09/2020. Kelley asked that we set up transportation. Kelley also stated she would talk with her administrators to inquire if any other documents are necessary prior to d/c and would email EWA. EWA faxed updates to [facility]. D/C set for 09/09/2020 @930am. Transportation will be set up closer to d/c date
[2020-09-02 12:55] VITALS: BP 96/50
--- NOTE | 2020-09-02 18:17 | NUR ---
0700 Assumed care of patient, patient sitting up in [facility] in room. patient calm and cooperative today. at times patient restless. patient noted with cough, chest xray ordered. Patient to toilet multipe times today with total of 300ml of dark yellow urine. Patient unsteady, assist x2 to transfer. Staff attemt to amb patient. Patient to weak and unable to take steps. Patient to bed x2 hrs then attempted to get out of bed. Alarm on bed sounded with patient trying to crawl over rails. Patient back to [facility] with chair alarm in place. Patient sleeps off and on in chair. medications given crushed in yogurt without difficulty. At times patient calls out from room. Patient confused and at times difficuty understanding words.
[2020-09-02 19:48] VITALS: BP 103/59
[2020-09-02 22:14] VITALS: BP 103/59
--- NOTE | 2020-09-03 03:05 | NUR ---
Assumed care of patient this pm shift. Patient in good spirits in her room. Patient is pleasantly confused, alert and oriented to self only. Patients affect is flat. Patient is medication adherent and takes medications crushed in pudding. Patient does not appear to be in any acute distress. Vital signs are stable. Patient is considered a falls risk and has on a yellow shirt. Patient has tried to get out of bed on multiple occassions which generally indicates the need to toilet. Patient is an assist x1 to 2 to get on the bedside commode. Patients gait is very unsteady. We will continue to monitor per hospital protocol.
[2020-09-03 07:00] VITALS: BP 105/60
--- NOTE | 2020-09-03 11:42 | NUR ---
0700 Assumed care of patient. Patient asleep in bed. VS this am bp- 105/60 P-79 RESP-18 TEMP-96.9 O2 SATS 96%. patient slept in till 0915. Patient given wash cloth and wipes face. Patient says good morning to insurance underwriter. Patient assist to BSC, voided x1. Patient transfered to vibha chair with assist x2, chair alarm on. Patient is quiet and cooperative. Breakfast tray set up for patient. 944 dr irwin here to see patient. Patient noted coughing at times Location Worker assist patient with eating a few bite. Medication given crushed with applesauce without difficulty. Patient continued to feed self. Ate 95% of meal. Patient resting in chair with eyes closed. Will continue to observe
[2020-09-03 20:09] VITALS: BP 119/60
[2020-09-03 21:40] VITALS: BP 119/60
--- NOTE | 2020-09-04 04:38 | NUR ---
Assumed care of patient this pm shift. Patient in her room isolated from other patients. Patient is alert and oriented to self only. Patients affect is flat. Patient is medication adherent and takes medications crushed in applesauce. Patient had a loose nonproductive cough early in the evening. Patients assessment shows no signs of acute distress. Vital signs are stable. Patient has slept well through the night. We will continue to monitor per hospital policy.
[2020-09-04 08:36] VITALS: BP 120/67
--- NOTE | 2020-09-04 11:46 | NUR ---
1130 RESUMMED CARE FROM OVERNIGHT SHIFT THIS AM, PATIENT IN BED LYING QUIET. PATIENT WAS PLACED IN GARCIA CHAIR ATE BREAKFAST TOOK MEDICATION CRUSHED. PATIENT HAD LARGE BOWEL MOVEMENT TODAY AFTER NOT HAVING ONE SINCE THE OF THIS MONTH. PATIENT ABDOMEN SOFT ROUND BOWEL SOUNDS PRESENT LUNGS CLEAR PATIENT DOES HAVE A COUGH. PATIENT IS ORIENTED TO SELF ONLY CALM COOPERATIVE WATCHING MOVIES WITH IPAD. PATIENT UNABLE TO TELL YOU ABOUT SI/HI AH/VH DUE TO COGNITVE DISORDER. WILL CONTINUE TO MONITOR PATIENT FOR SAFETY AND BEHAVIORS.
[2020-09-04 19:01] VITALS: BP 110/87
--- NOTE | 2020-09-05 06:10 | NUR ---
ASSUMED PT'S CARE THIS PM SHIFT. PT WAS ALREADY IN BED AT TIME OF ASSESSMENT. PT WAS CALM AND COOPERATIVE. MEDS GIVEN PER EMAR. PT DID YELL OUT "MARCIA" SEVERAL TIMES. PT COMPLAINED OF PAIN. UNABLE TO DESCRIVE OR RATE PAIN. PRN TYLENOL ORDERED AND GIVEN. PT SLEPT 7.4 HOURS THIS SHIFT. PT WAS OUT BY HER DOOR ON A GERICHAIR. FALL PRECAUTIONS IN PLACE. PT OFFERED WATER INTERVALLY. PT WAS MOSTLY CONTINENT. PT CURRENTLY AWAKE SITTING QUIETLY. WILL CONTINUE TO MONITOR.
[2020-09-05] MEDS ORDERED: SEROQUEL300 MG PO (09:06)
[2020-09-05] MEDS ORDERED: SEROQUEL 50 MG50 MG PO (09:07)
[2020-09-05] MEDS ORDERED: MIRALAX17 GM PO (09:09)
[2020-09-05] MEDS ORDERED: FOLIC ACID1 MG PO (09:09)
[2020-09-05] MEDS ORDERED: SEROQUEL 100 M100 M1 PO (09:09)
[2020-09-05] MEDS ORDERED: VITCB500GO PO (09:10)
--- NOTE | 2020-09-05 10:30 | NUR ---
PT ARRIVED TO [facility] FROM [facility]. PT CONFUSED, NOT ABLE TO COMMUNICATE IN FULL SENTANCES. PT BILL [employer] ALSO. PT LUNGS CLEAR AND ON ROOM AIR AT 97%. PT ARRIVED VIA [facility]IRYAM CHAIR WITH CHAIR ALARM AND LAP JAUN. PT GIVEN CALL LIGHT AND VS TAKEN. PT GIVEN FRESH WATER. PT ORIENTED TO SELF.
[2020-09-05 11:00] VITALS: BP 96/46
--- NOTE | 2020-09-05 11:40 | NUR ---
PT HANDING THIS EDUCATION RESEARCH ANALYST THE CALL LIGHT. PT STATED SHE WAS GETTING UP. PT ASSISTED TO BSC AND VOIDED AND HAD SOFT BM. PT NEEDED ASSISTANCE WITH GETTING BRIEF DOWN. PT SHAKEY WITH STANDING. PT PLACED BACK TO RECLINER CHAIR.
--- NOTE | 2020-09-05 12:37 | NUR ---
CALLED SHANDRA BRIAN [phone] ABOUT ADMISSION TO 3RD FLOOR. SHE GOT TO SPEAK WITH PT ON THE PHONE. PT DIDN'T CONVERSE IN A CONVERSATION WHEN DID SPEAK, UNABLE TO UNDERSTAND HER.
--- NOTE | 2020-09-05 12:39 | NUR ---
PT EATING LUNCH NOW. SHE ASKED THIS ROLLER MACHINE OPERATOR WHERE DAD WAS, SHE ASKED A COUPLE OF TIMES. PT FEEDING SELF WITHOUT ANY ISSUES. NO SIGNS OF SWALLOWING ISSUES. HER IS FINA SANDOVAL [phone].
--- NOTE | 2020-09-05 14:48 | NUR ---
PT RESTING IN CHAIR AT THIS TIME, PT HAS WATER AT BEDSIDE AND CALL LIGHT.
--- NOTE | 2020-09-05 15:54 | NUR ---
INITIAL ASSESSMENT: EWA reviewed chart and spoke with nursing and attending physician. Pt was admitted from [facility] unit. Pt placed in Enhanced Isolation due to COVID-19. Pt is asymptomatic. Plan is for pt to discharge to [facility] on Wednesday, 09/09 at 0930. EWA received voice message from pt's dtr/DPLacey GOMEZ. SW returned call and left voice message. EWA spoke with Kelley Barton at [facility], who states they are ready to accept pt on Wednesday, which will be her 20 days of isolation after first positive COVID test. EWA is following to assist as needed with discharge planning.
--- NOTE | 2020-09-05 17:32 | NUR ---
FED PT SOME DINNER, PT STARTED EATING ORANGE SHERBERT. PT ASKING ABOUT WHERE IS MARCIA, HER . PT VERY PLEASANT, NO SIGNS OF BEHAVIOR.
[2020-09-05 19:37] VITALS: BP 103/62
--- NOTE | 2020-09-05 21:58 | NUR ---
Care assumed of patient at 1915: Patient seated in vibha chair in her room watching TV at start of shift. Took HS medication whole without difficulty. Alert and oriented to person only. Pleasantly confused, calm and cooperative. No inappropriate behaviors observed. Contact isolation in place. Resting quietly in vibha chair at this time.
[2020-09-06 03:32] VITALS: BP 123/65
[2020-09-06 08:07] VITALS: BP 108/63
--- NOTE | 2020-09-06 10:53 | NUR ---
Assess due to length of stay. COVID+, assymptomatic. Previously on [facility] unit. Intake has been good, >75% of meals. Wt fluctuations in meditech, but now more stable around 117 lb. Plan is for discharge on Wednesday. Low nutrtion risk
--- NOTE | 2020-09-06 14:28 | D ---
[facility] [place] [address] DISCHARGE SUMMARY Name: RONI SHIPMAN Room #: 362-P [facility] IN M.R.#: [id number] Admission: 08/28/20 Attend Phys: Marc Lantigua DO Discharge: Date of : 37 Report #: [id number] THIS REPORT FOR: cc: NABIL REA MD, SAMANTHA M. MD Kerstein, Andrew H. DO ~ THIS REPORT FOR: //name// CC: Marc REA DATE OF SERVICE: 09/05/2020 INPATIENT PSYCHIATRIC DISCHARGE SUMMARY DISCHARGE PLAN: The patient is discharging to the [address] [place] [address] here at [facility]. The patient was originally found to be COVID positive on 08/21/2020, which was the day she was schedule to discharge to nursing facility. DIET: Regular. ACTIVITY LEVEL: As tolerated, does require 24/7 supervision. DISCHARGE MEDICATIONS: Seroquel 300 mg p.o. daily at 1300, Seroquel 50 mg p.o. daily at 0900, Seroquel 100 mg p.o. at bedtime. MiraLax 17 g p.o. daily, dissolved in 8 ounces water for bowel motility. Folic acid 1 mg p.o. daily, vitamin C 1000 mg p.o. daily, mirtazapine 7.5 mg p.o. daily for appetite and sleep, vitamin C and folic acid were supplements. The patient is being discharged to the medical floor as her nursing facility will not take her back until 09/09/2020 and the [facility] will be getting a TerminaL Clean in the next 24 hours. REASON FOR ADMISSION: Readmission to hospital is just that her snf would not take her back until and she is a dementia patient with no other safe discharge plan. HOSPITAL COURSE: The patient was readmitted to Geriatric Psychiatry. There were few changes on this admission. I kept the psychotropics as they were when she was on [facility] [address] previously. She has required a forward fASTENING and she tends not to get up safely. She is continent for bowel and bladder, but does need to be placed on the bedside commode. Her most recent weight is as follows: On 08/31/2020, she was 53.250 kilos and that is about what she was on admission, BMI 20.1. Laboratories on this most recent admission to Geriatric Psychiatry [address] [address] DISCHARGE SUMMARY Name: RONI SHIPMAN Room #: 362-P [facility] IN .R.#: [id number] Admission: 08/28/20 Attend Phys: Marc Lantigua DO Discharge: Date of : 37 Report #: [id number] were glucose 112 on 08/30/2020. Last set of labs looks like they were on the medical unit, so those were covered by the hospitalist. Her COVID-19 PCR last one was 08/26/2020, which was positive. PHYSICAL EXAMINATION: Wearing glasses, seated in chair, nonambulatory, did not attempt to test gait. MENTAL STATUS EXAMINATION: This is a well-developed, well-appearing female appearing at least stated age. Attention limited. Concentration limited. Speech frequently unintelligible, but fluent. She does have receptive expressive aphasia. She can drink water and feed with some assistance. Attention impaired. Concentration impaired. Speech as described, unable to assess well for SI, HI, but not appearing self-destructive, unable to assess really for auditory, visual or tactile hallucinations, but not appear to be responding to stimuli. Mood and affect were happy, congruent, euthymic, fair range. Memory not formally tested. Insight impaired, judgment impaired. Fund of knowledge well below average. Prognosis for this patient is guarded given her advanced dementia and memory care is recommended. It should be noted the nursing facility that has agreed to take her back was as follows: [facility] on 09/09/2020. Our contact there is Kelley Barton [phone]. <ELECTRONICALLY SIGNED> By: Marc Lantigua DO 09/06/20 1428 1201 1240 Marc Lantigua DO /nt
--- NOTE | 2020-09-06 16:02 | NUR ---
SW reviewed chart and spoke with nursing and attending physician. Pt remains in Enhanced Isolation due to COVID-19. Pt is afebrile and not requiring O2. Discharge to [facility] care is anticipated for Wednesday, 09/09 at 0930. EWA spoke with pt's dtr, Lacey, via phone to provide update and confirm discharge plan. Pt's family will bring clothing items to [facility] over the weekend. SW arranged [facility] transportation for 0930 on Wednesday. Pt has membership/subscription service. SW is following to finalize discharge plan.
[2020-09-06 16:05] VITALS: BP 101/53
--- NOTE | 2020-09-06 18:24 | NUR ---
ASSUMED PATIENT CARE AT 0700. AWAKE. ON CHAIR MOST TIMES THIS SHIFT. DAUGHTER TRY TO TALK TO PATIENT A FEW TIMES BUT PATIENT NOT ABLE TO TALK, AGITATED. WILL KEEP MONITOR.
--- NOTE | 2020-09-06 22:40 | NUR ---
ASSESSMENT COMPLETED. PT MOSTLY SLEEPING. ABLE TO ANSWER TO HER NAME. SHE IS OTHERWISE STILL DISORIENTED TO PLACE, SITUATION AND TIME.SHE WAS ABLE TO TAKE HER MEDS IN APPLE SAUCE. SHE IS CALM WIH NO AGGRESSIVE BEHAVIOR. STABLE ON ROOM AIR. AFEBRILE.FALL PREC IN PLACE.WILL CONTINUE WITH POC TILL EOS.
[2020-09-07 04:43] VITALS: BP 104/48
[2020-09-07 08:53] VITALS: BP 121/60
--- NOTE | 2020-09-07 11:00 | NUR ---
PT UP IN BEDSIDE CHAIR. THIS NURSE FED PATIENT BREAKFAST ATE 60 %. TOOK AM MEDS. PT W/O INCREASED ANXIETY.
[2020-09-07 16:11] VITALS: BP 96/48
[2020-09-07 20:39] VITALS: BP 120/56
[2020-09-08 00:45] VITALS: BP 120/56
[2020-09-08 03:22] VITALS: BP 118/55
--- NOTE | 2020-09-08 06:25 | NUR ---
PT WAS UP TO CHAIR UNTIL 2100 WHEN SHE WENT TO BED. PT SLEPT PEACEFULLY OVERNIGHT WITHOUT ANY BEHAVIOR ISSUES. PT SHOULD DC TO [facility] ON 09/09. PER CDC GUIDELINES AND EMAIL FROM TIFFANIE Whatley, PT COULD BE MOVED OUT OF ISOLATION. LAST POSITIVE COVID WAS 08/21 AND GUIDELINES STATE 10 DAYS. WILL PASS INFORMATION ON TO ON COMING SHIFT.
[2020-09-08 08:03] VITALS: BP 127/65
[2020-09-08 09:00] VITALS: BP 120/59
[2020-09-08 16:22] VITALS: BP 114/64
--- NOTE | 2020-09-08 18:14 | NUR ---
RN ASSUMED PT'S CARE AT 0700AM, PT KNOWS HER NAME, BUT PT IS CONFUSED AND IMPULSIVE AT TIME, PT IS CONTINUING ISOLATION FOR POSITIVE COVID, PT NEEDS HELP MEALS AND ADL, PT'S VS ARE STABLE AT THIS TIME.
--- NOTE | 2020-09-08 19:38 | NUR ---
PT'S PLAN IS DC TO [facility] TOMORROW 0930AM , RN HAS REPORTED TO NEXT SHIFT.
[2020-09-08 19:47] VITALS: BP 120/59
[2020-09-09 04:50] VITALS: BP 125/70
--- NOTE | 2020-09-09 06:42 | NUR ---
FOLLOWING POC SO PT CAN DC TODAY TO [facility]. PT VERY IMPULSIVE AND CHAIR AND BED ALARMS ARE NECESSARY. PUT UP TO BSC WITH X1. PT TAKES HER MEDICATIONS CRUSHED IN PUDDING/APPLESAUCE/YOGURT WHICHEVER SHE CHOOSES. VSS. HOURLY ROUNDING. ISOLATION AND FALL PRECAUTIONS IN PLACE.
[2020-09-09 08:46] VITALS: BP 138/76
[2020-09-09] MEDS ORDERED: ZYRTEC10 MG PO (09:35)
[2020-09-09] MEDS ORDERED: HALOPERIDOL 1 MG1 MG PO (09:35)
[2020-09-09] MEDS ORDERED: ZINC SULFATE 2220 MG PO (09:35)
--- NOTE | 2020-09-09 11:02 | NUR ---
PT CARE ASSUMED AT 0700, PT ALERT AND ORIENTED X2, ABLE TO FOLLOW COMMANDS. IMPULSIVE AT TIMES. DENIES ANY PAIN, NAUSEA AND VOMITTING. PT IS ON ROOM AIR, NO SIGNS OF DISTRESS. FALL PRECAUTIONS IN PLACE. DISCHARGE ORDERS IN 1050 TRANSPORTATION HERE FOR PT. PT BELONGINGS PACKED, INCLUDING EARING AIDES AND GLASSES AND CHARTCOPY GIVEN TO TRANSPORTATION. 1105 REPORT GIVEN TO JUAM RODRIGUEZ AT [facility].
--- NOTE | 2020-09-09 12:05 | NUR ---
DISCHARGE NOTE: EWA reviewed chart and spoke with nursing and attending physician. Pt is medically stable for discharge to [facility] today as scheduled. EWA called [facility] to confirm 0930 transportation time. EWA faxed finalized discharge orders/summary to facility. Confirmed info was received. EWA spoke with Kelley Barton at [facility] to discuss plan. Kelley updated the facility. EWA spoke with pt's dtr, Lacey, via phone to provide update and confirm discharge plan. Lacey is aware and agreeable. [facility] requesting outside the hospital DNR form. Form completed with pt's dtr. Physician signed form. Nursing provided with number to call report. Chart copy requested. No additional SW needs identified at this time, but is available to assist should needs arise.
== END 2020-09-09 11:26 | DRG 57 ==
LOC: SBH → 3W 08-28 01:26 → SBH 08-28 14:07 → 3W 09-05 11:22
PROVIDERS: ADMIT Psychiatry & Neurology Psychiatry; ATTEND Psychiatry & Neurology Psychiatry
DX: G30.9 Alzheimer's disease, unspecified (principal); F01.51 Vascular dementia, unspecified severity, with behavioral disturbance; R45.851 Suicidal ideations; F02.80 Dementia in other diseases classified elsewhere, unspecified severity, without behavioral disturbance, psychotic disturbance, mood disturbance, and anxiety; N13.9 Obstructive and reflux uropathy, unspecified; R33.9 Retention of urine, unspecified; Z20.828 Contact with and (suspected) exposure to other viral communicable diseases; Z79.899 Other long term (current) drug therapy; Z90.49 Acquired absence of other specified parts of digestive tract; Z90.710 Acquired absence of both cervix and uterus; Z23 Encounter for immunization
CPT/HCPCS: 10779; 10880